=== PATIENT | female | born 1950 | race Caucasian/White ===

== ENCOUNTER 2017-02-07 06:13 | Day surgery (SDC) | payer OTHER, MEDICARE ==
[2017-02-01 16:18] VITALS: BMI 20.9
[2017-02-07] MEDS ORDERED: GENTAMICIN SO4 80 MG/2 ML VIAL ONE (07:04)
[2017-02-07] MEDS ORDERED: ceFAZolin SODIUM 1 GM VIAL ONE (07:04)
[2017-02-07] MEDS ORDERED: BUPIVACAINE HCL/PF 2.5 MG/ML - 30 ML VIAL IJ ONE (07:04)
[2017-02-07] MEDS ORDERED: LIDOCAINE 1%/EPI 1:100000 (20 ML MULTI DOSE VIAL) INF ONE ×2 (08:02)
[2017-02-07] MEDS ORDERED: BUPIVACAINE HCL/PF 0.5% (5MG/ML) 10 ML VIAL IJ ONE (09:14)
[2017-02-07] MEDS ORDERED: ONDANSETRON 4 MG/2 ML VIAL ONE (09:44)
--- NOTE | 2017-02-07 09:48 | OP ---
Operative Note - Note: Operative Date: 02/07/17 Pre-Operative Diagnosis: Capusular contracture bilateral implants Operation: Bilateral breast capsulectomy with exchange of silicone implants Findings: Bilateral capsular contracture with silicone implants rupture. Implants: silicone Post-Operative Diagnosis: Same as Pre-op Surgeon: Garry Barajas Folder Machine Adjuster: Reyna Barrera Anesthesiologist/TENNIS CENTRE MANAGER: Casimiro Knapp Anesthesia: Local, MAC Specimens Removed: bilateral silicone implants and capsule Estimated Blood Loss (mls): 20 Drains & Tubes with Location: bilateral 15 paolo drains Operative Report Dictated: Yes
[2017-02-07] MEDS ORDERED: PROMETHAZINE HCL 25 MG/1 ML VIAL IVPUSH PRN (09:56)
[2017-02-07] MEDS ORDERED: oxyCODONE HCL 5 MG TABLET PO PRN ×2 (09:56)
[2017-02-07] MEDS ORDERED: ONDANSETRON 4 MG/2 ML VIAL IVPUSH PRN (09:56)
[2017-02-07 12:04] VITALS: BP 120/61; PULSE 60; TEMP 97.6
--- NOTE | 2017-02-09 10:29 | OP ---
DATE OF OPERATION: 02/07/2017 SURGEON: Rah Barajas MD [employer]CH[employer]IC SURGEON: Reyna Barrera PA-C PREOPERATIVE DIAGNOSIS: Bilateral implant rupture and malposition. POSTOPERATIVE DIAGNOSIS: Bilateral implant rupture and malposition. OPERATIVE PROCEDURE: 1. Right breast capsulectomy, removal and replacement of silicone breast implant. 2. Left breast capsulectomy, removal and replacement of silicone breast implant. OPERATIVE INDICATION: Patient is a 66-year-old white female who was brought to the operating room because of documented rupture of both of her breast implants which had been placed 28 years ago. Patient had become symptomatic with discomfort and distortion of her breasts bilaterally. The risks and benefits of surgical versus nonsurgical alternatives and material complications of the procedure were described to the patient on multiple occasions preoperatively. She agreed to the planned procedures. All questions were asked and answered for the patient. She understood the implications of silicone breast implant in the future and the need for further surgery. OPERATIVE PROCEDURE IN DETAIL: The patient was taken to the operating room and after induction of general anesthesia in the supine position both arms were extended and padded. Venodyne boots were placed and then attention was turned to the breasts. The breasts showed anatomic distortion and malposition of the implants on both sides. The previous incision in the inframammary fold was injected with 1% local lidocaine anesthesia with 1:100,000 epinephrine. After allowing topical anesthesia and hemostasis and placement of covering 10/10 drapes over the breasts, incision was made down through the skin through the subcutaneous tissue and then down to the underlying capsule of the right breast implant. The capsule was then opened and the implant material extruded into the wound. The ruptured and distorted breast implant was removed in its entirety throughout the pocket. Once removed, the implant showed almost complete disintegration and rupture. The wounds were copiously irrigated with saline with antibiotic solution and Shur-Clens. After copious irrigation of the wound, the capsule appeared to be somewhat irregular and a capsulectomy was performed on this breast. The exact same procedure was carried out symmetrically on the opposite side, also encountering upon capsulotomy a completely ruptured implant in the left breast. Both implants were sent in pieces for pathologic diagnosis. On the left breast, also irregularities within the capsule itself were seen and a complete capsulectomy was performed on the left breast as well. After copious irrigation again with the wounds bathed in triple-antibiotic solution and hemostasis meticulously obtained throughout, there still appeared to be some oozing from complete capsulectomies. The capsules were sent for pathologic diagnosis to rule out ALCL. After hemostasis was obtained, a decision was made to place 2 small drains. Jeremy 15 drains were brought out through separate stab wounds laterally and then copious irrigation was performed and closure was accomplished at this point. New implants were placed back into the chest wall pocket. These implants were Natrelle Inspira style SRM 310-mL volume to match the similar volume previously. The implant was placed in each breast and good shape and contour were seen within the space. The wounds were closed in 3 layers using 3-0 PDS suture on the deeper tissue, 3-0 Biosyn in the dermal layer, and 4-0 Biosyn in a subcuticular fashion. The wounds were dressed with Dermabond and Steri-Strip dressings. She tolerated the procedure well. She was awakened, extubated and transferred to the recovery room in satisfactory condition. RAH BARAJAS M.D. LORRAINE/[id number]
--- NOTE | 2017-02-13 16:08 | PATH ---
Surgical Pathology Report Patient Name: CHANDRAKANT SIMMONS [facility]. Rec. #: [id number] /Age/Gender: 1950 (Age: 66) / F Account: [id number] Location: [facility] AMBULATORY Taken: 02/07/2017 Received: 02/07/2017 Reported: 02/13/2017 Physicians: Garry Barajas Specimen(s) Received A: RIGHT BREAST EXPLANT B: LEFT BREAST EXPLANT C: RIGHT BREAST CAPSULE D: LEFT BREAST CAPSULE Clinical History History of 28 years with textured breast implants, rule out ALCL Final Diagnosis A. RIGHT BREAST EXPLANT: EXPLANT, WITH FOCAL DEFECT, DESCRIBED (GROSS EXAMINATION ONLY). B. LEFT BREAST EXPLANT: EXPLANT, DESCRIBED (GROSS EXAMINATION ONLY). C. BREAST CAPSULE, RIGHT, CAPSULECTOMY: FIBROUS CAPSULE SHOWING FOREIGN BODY GIANT CELL REACTION AND MILD NON-SPECIFIC CHRONIC INFLAMMATION. (SEE NOTE) D. BREAST CAPSULE, LEFT, CAPSULECTOMY: FIBROUS CAPSULE SHOWING FOREIGN BODY GIANT CELL REACTION AND MODERATE CHRONIC NON-SPECIFIC INFLAMMATION. (SEE NOTE) Note: Immunohistochemical studies performed at [place], [place] (ET17- 1167, block D3) show the inflammatory infiltrate to be comprised of an admixture of small predominantly CD3+ T lymphocytes and few CD20+ B lymphocytes. CD30 immunostain is negative. These findings support a reactive inflammatory process. No evidence of anaplastic large cell lymphoma (ALCL). Electronically Signed Priscilla Pool M.D. Gross Description A. Received fresh labeled "right breast explant," is a 10.0 x 10.0 x 2.5 cm breast implant with a focal defect. There is silicon material leaking from the implant into the container. No soft tissue is present. No sections are submitted, gross only. B. Received fresh labeled "left breast explant," is a 12.0 x 12.0 x 2.0 cm intact breast implant. No soft tissue is present. No sections are submitted, gross only. C. Received in formalin labeled "right breast capsule," is a 9.3 x 6.0 x 0.2 cm redd, irregular portion of fibrous tissue, consistent with a fibrous capsule. Sectioning reveals a 1.2 x 1.0 cm focus of redd-brown discoloration. Additionally, there is a 0.4 x 0.3 x 0.2 cm firm focus of fibrous tissue identified attached to the capsule. [address] Service sections are submitted in 4 cassettes as follows: 1-focus of discoloration; 2-focus of firm fibrous tissue; 6-6-qzjkidnove signs and displays sales representative capsule. D. Received in formalin labeled "left breast capsule," is a 14.0 x 9.5 x 0.8 cm aggregate of multiple redd, irregular, unoriented portions of fibrous tissue, consistent with a fibrous capsule. Sectioning of one of the portions displays an attached 2.4 x 2.2 x 1.0 cm redd, soft tissue mass. The remaining fibrous capsule appears unremarkable. [address] Service sections are submitted in 7 cassettes as follows: 1-5-fibrous capsule with attached soft tissue mass; 5-4-okiivrkhxd signs and displays sales representative uninvolved fibrous capsule. 02/08/2017 saudi02/08/2017
== END 2017-02-07 12:00 | disposition home or self-care (01) ==
LOC: FASU 06:13
PROVIDERS: ATTEND Plastic Surgery
PROC: 0HPT0JZ Removal of Synthetic Substitute from Right Breast, Open Approach (ICD-10-PCS; 2017-02-07)
PROC: 0HRV0JZ Replacement of Bilateral Breast with Synthetic Substitute, Open Approach (ICD-10-PCS; 2017-02-07)
PROC: 0HPU0JZ Removal of Synthetic Substitute from Left Breast, Open Approach (ICD-10-PCS; principal; 2017-02-07 08:02)
DX: T85.43XA Leakage of breast prosthesis and implant, initial encounter (principal); T85.42XA Displacement of breast prosthesis and implant, initial encounter; Y83.8 Other surgical procedures as the cause of abnormal reaction of the patient, or of later complication, without mention of misadventure at the time of the procedure; Y92.9 Unspecified place or not applicable
CPT/HCPCS: 88300-TC; 88305-TC; 94760

== ENCOUNTER 2023-10-02 08:56 | Day surgery (SDC) | payer OTHER, MEDICARE ==
[2023-09-24 12:46] VITALS: BMI 22.1
[2023-10-02 09:23] VITALS: RESP 18
[2023-10-02 10:50] VITALS: TEMP 97
[2023-10-02 11:21] VITALS: BP 128/68; PULSE 67
== END 2023-10-02 12:06 | disposition home or self-care (01) ==
LOC: FASU-ENDO 08:56
PROVIDERS: ATTEND Internal Medicine Gastroenterology
PROC: 0DBL8ZX Excision of Transverse Colon, Via Natural or Artificial Opening Endoscopic, Diagnostic (ICD-10-PCS; 2023-10-02)
PROC: 0DBM8ZX Excision of Descending Colon, Via Natural or Artificial Opening Endoscopic, Diagnostic (ICD-10-PCS; 2023-10-02)
PROC: 0DBK8ZX Excision of Ascending Colon, Via Natural or Artificial Opening Endoscopic, Diagnostic (ICD-10-PCS; principal; 2023-10-02 10:13)
DX: R19.7 Diarrhea, unspecified (principal); K64.1 Second degree hemorrhoids; K57.30 Diverticulosis of large intestine without perforation or abscess without bleeding
CPT/HCPCS: 88305-TC

== ENCOUNTER 2023-10-23 15:31 | Emergency (ER) | payer OTHER, MEDICARE ==
[2023-10-23] MEDS ORDERED: DIPHTH,PERTUSS(ACELL),TET 0.5 ML DISP.SYRIN IM ONE (15:56)
[2023-10-23] MEDS: DIPHTH,PERTUSS(ACELL),TET 0.5 ML DISP.SYRIN IM ONE (15:59)
[2023-10-23 16:06] VITALS: BP 140/71; PULSE 71; RESP 20; TEMP 99; BMI 22.1
== END 2023-10-23 16:09 | disposition home or self-care (01) ==
LOC: FER 15:31
PROC: 0XQKXZZ Repair Left Hand, External Approach (ICD-10-PCS; principal; 2023-10-23)
PROC: 3E0234Z Introduction of Serum, Toxoid and Vaccine into Muscle, Percutaneous Approach (ICD-10-PCS; 2023-10-23)
DX: S61.412A Laceration without foreign body of left hand, initial encounter (principal); W26.0XXA Contact with knife, initial encounter
CPT/HCPCS: 12001-25; 90471; 90715; 99284-25

== ENCOUNTER 2023-11-01 14:24 | Emergency (ER) | payer OTHER, MEDICARE ==
[2023-11-01 14:44] VITALS: BP 135/65; PULSE 72; RESP 18; TEMP 98.3; BMI 25.7
== END 2023-11-01 14:45 | disposition home or self-care (01) ==
LOC: FER 14:24
DX: Z48.02 Encounter for removal of sutures (principal)
CPT/HCPCS: 99281-25